=== PATIENT | female | born 1990 | race African-American/Black ===

== ENCOUNTER 2022-10-12 16:27 | Emergency (ER) | payer SELFPAY ==
[2022-10-12 16:51] VITALS: BMI 26.6
[2022-10-12] MEDS ORDERED: SODIUM CHLORIDE 0.9% 500 ML INFUS.BAG IV ONE (18:24)
[2022-10-12 18:43] LABS: BASO % 0.4 % (0-2.0); EOS % 0.9 % (0-4.5); HEMATOCRIT 30.4 % (32.4-45.2); HEMOGLOBIN 10.6 GM/dL (10.7-15.3); LYMPH % 19.5 % (8-40); MCH 30.9 pg (25.7-33.7); MCHC 34.9 g/dl (32.0-36.0); MEAN CELL VOLUME 88.6 fl (80-96); MEAN PLT VOLUME 7.4 fl (7.5-11.1); NEUT % 70.2 % (42.8-82.8); PLATELET COUNT 274 10^3/uL (134-434); RBC 3.43 M/mm3 (3.60-5.2); RDW 13.8 % (11.6-15.6); WHITE BLOOD COUNT 8.1 K/mm3 (4.0-10.0)
[2022-10-12 19:01] LABS: ALBUMIN 2.9 g/dl (3.4-5.0); BLOOD UREA NITROGEN 9.3 mg/dL (7-18); CALCIUM 9.1 mg/dL (8.5-10.1); MAGNESIUM 1.8 mg/dL (1.8-2.4)
[2022-10-12 19:04] LABS: CREATININE 0.7 mg/dL (0.55-1.3)
[2022-10-12 19:05] LABS: BILIRUBIN,TOTAL 0.6 mg/dL (0.2-1); TOT PROT 6.7 g/dl (6.4-8.2)
[2022-10-12 19:08] LABS: N-TERMINAL BNP 42.3 pg/ml (5-125)
[2022-10-12 19:29] LABS: EPI CELLS >36 /uL (0-25.1); HYALINE CASTS 0 /uL (0-3.1); URINE APPEARANCE TURBID; URINE BACTERIA 2137 /uL (0-1359); URINE BILIRUBIN NEGATIVE (NEGATIVE); URINE COLOR YELLOW; URINE GLUCOSE (UA) NEGATIVE (NEGATIVE); URINE KETONE NEGATIVE (NEGATIVE); URINE LEUK ESTERASE TRACE (NEGATIVE); URINE NITRITE NEGATIVE (NEGATIVE); URINE PROTEIN NEGATIVE (NEGATIVE); URINE RBC 7 /uL (0-23.9); URINE WBC 38 /uL (0-25.8)
[2022-10-12 23:20] LABS: PROTHROMBIN TIME (PATIENT) 11.6 SEC (9.7-13.0)
[2022-10-12 23:22] LABS: ACTIVATED PTT 22.7 SECONDS (25.2-36.5)
[2022-10-13] MEDS ORDERED: LACTATED RINGERS SOLUTION 1,000 ML IV ONE (02:30)
[2022-10-13 02:48] VITALS: BP 101/58; PULSE 89; RESP 17; TEMP 98.5
== END 2022-10-13 04:40 | disposition home or self-care (01) ==
LOC: JER 16:27
PROC: 3E0337Z Introduction of Electrolytic and Water Balance Substance into Peripheral Vein, Percutaneous Approach (ICD-10-PCS; principal; 2022-10-12)
DX: O99.413 Diseases of the circulatory system complicating pregnancy, third trimester (principal); R00.2 Palpitations; Z3A.30 30 weeks gestation of pregnancy; Z20.822 Contact with and (suspected) exposure to COVID-19
CPT/HCPCS: 0241U-QW; 36415; 71275-TC; 76801-TC; 80053; 81003; 83735; 83880; 84443; 84484; 85025; 85379; 85610; 85730; 86850; 86900; 86901; 87086; 93005; 93010; 93970-TC; 99285-25; Q9967